=== PATIENT | female | born 1965 | race African-American/Black ===

== ENCOUNTER 2020-07-23 11:30 | Emergency (ER) | payer OTHER ==
[~2020-07-23 11:30] MED LIST: CELEXA20 MG PO; DOXYCYCLINE HY100 M2 PO; FLAGYL500 MG PO; K-TAB ER20 MEQ PO; LISINOPRIL-HCT1 EACH PO; NAPROSYN375 MG PO; TRAZODONE 50MG50 MG PO
[2020-07-23] MEDS ORDERED: NAPROXEN500 MG PO (14:49)
== END 2020-07-23 15:53 | disposition home or self-care (01) ==
LOC: FER 11:30
DX: M71.21 Synovial cyst of popliteal space [Baker], right knee (principal); I10 Essential (primary) hypertension; Z98.890 Other specified postprocedural states; Z88.0 Allergy status to penicillin
CPT/HCPCS: 73564; 93971